=== PATIENT | female | born 1950 | race Caucasian/White ===

== ENCOUNTER 2017-08-03 12:39 | Emergency (ER) | payer MEDICARE ==
[~2017-08-03] VITALS: Ht 170.2 cm; Wt 94.8 kg
[~2017-08-03 12:39] MED LIST: CALCIUM + VITA1 EACH PO; CRESTOR10 MG PO; ENALAPRIL MALEA20 MG PO; TRAZODONE HCL100 MG PO; WELLBUTRIN XL150 MG PO
[2017-08-03] MEDS ORDERED: SODIUM CHLORIDE 0.9% 1000ML 1,000 ML IV STA (13:27)
[2017-08-03] MEDS ORDERED: METHYLPREDNISOLONE SOD SUCC 125 MG/2ML VIAL IV STA (13:27)
[2017-08-03] MEDS ORDERED: ALBUTEROL/IPRATROPIUM 3 ML NEB NEB ONE (13:30)
[2017-08-03 14:16] LABS: ALANINE AMINOTRANSFERASE 52 IU/L (0-55); ALBUMIN 3.6 g/dL (3.5-5.0); ALBUMIN/GLOBULIN RATIO 0.8 (0.8-2.0); ALKALINE PHOSPHATASE 96 IU/L (40-150); ANION GAP 13.3 mmol/L (8-16); BLOOD UREA NITROGEN 18 mg/dL (7-26); BUN/CREATININE RATIO 19 (6-25); CALCIUM 10.1 mg/dL (8.4-10.2); CARBON DIOXIDE 27 mmol/L (22-29); CHLORIDE 95 mmol/L (98-107); CREATINE KINASE 305 IU/L (29-168); CREATININE, SERUM 0.97 mg/dL (0.57-1.11); EST GLOMERULAR FILTRATION RATE 57 ML/MIN (60-); GLUCOSE 101 mg/dL (74-118); POTASSIUM 3.3 mmol/L (3.5-5.1); SODIUM 132 mmol/L (136-145)
[2017-08-03 14:19] LABS: BASOPHILS # (AUTO) 0.1 (0.0-0.1); BASOPHILS % 0.7 % (0.0-1.0); EOSINOPHILS # (AUTO) 0.2 (0.0-0.4); EOSINOPHILS % 1.5 % (0.0-6.0); HEMATOCRIT 39.5 % (34.2-44.1); HEMOGLOBIN 13.2 g/dL (12.0-16.0); LYMPHOCYTES # (AUTO) 2.5 (1.0-3.2); LYMPHOCYTES % 21.5 % (18.0-39.1); MEAN CORPUSCULAR HGB CONC 33.4 g/dL (31-35); MEAN CORPUSCULAR VOLUME 89.8 fL (81-99); MONOCYTES # (AUTO) 0.8 (0.2-0.8); MONOCYTES % 6.8 % (4.4-11.3); NEUTROPHILS # (AUTO) 7.9 (2.1-6.9); NEUTROPHILS % 68.1 % (38.7-80.0); PLATELET COUNT 330 x10e3/uL (140-360); RED CELL DISTRIBUTION WIDTH 12.9 % (11.7-14.4)
[2017-08-03 14:22] LABS: TROPONIN I < 0.001 ng/mL (0-0.300)
--- NOTE | 2017-08-03 14:53 | Diagnostic Imaging Report ---
EXAMINATION: CHEST 2 VIEWS INDICATION: \S\SOB, COUGH \S\[id number] \S\1355 \S.br\ COMPARISON: None FINDINGS: PA and lateral views TUBES and LINES: None. LUNGS: Lungs are well inflated. Airspace opacity in the posterolateral left lower lobe. Lungs are otherwise clear. PLEURA: No pleural effusion or pneumothorax. HEART AND MEDIASTINUM: The cardiomediastinal silhouette is unremarkable. BONES AND SOFT TISSUES: No acute osseous lesion. Soft tissues are unremarkable. UPPER ABDOMEN: No free air under the diaphragm. IMPRESSION: Left lower lobe opacity concerning for pneumonia in the appropriate clinical context. Recommend follow up chest radiograph to document resolution. Signed by: DR. Marcelino Cárdenas MD on 08/03/2017 2:50 PM
[2017-08-03 15:55] VITALS: BP 133/68
== END 2017-08-03 17:08 | disposition home or self-care (01) ==
LOC: ER 12:39
DX: R06.09 Other forms of dyspnea (principal); R05 Cough; J18.1 Lobar pneumonia, unspecified organism; I10 Essential (primary) hypertension
CPT/HCPCS: 36415; 71020; 80053; 82550; 82553; 84484; 85025; 85379; 87400; 93005; 94640; 99284; J2930; J7030

== ENCOUNTER 2018-02-17 17:20 | Emergency (ER) | payer BC, MEDICARE, OTHER ==
[~2018-02-17] VITALS: Ht 170.2 cm; Wt 94.8 kg
[2018-02-17] MEDS ORDERED: NAPROXEN250 MG PO (18:10)
[2018-02-17] MEDS ORDERED: LISINOPRIL-HCT1 EAC2 (18:10)
[2018-02-17] MEDS ORDERED: LEXAPRO10 MG PO (18:10)
[2018-02-17] MEDS ORDERED: KETOROLAC TROMETHAMINE 60 MG/2 ML VIAL IM ONE (18:30)
== END 2018-02-17 19:46 | disposition home or self-care (01) ==
LOC: FSED 17:20
DX: M25.562 Pain in left knee (principal); R26.2 Difficulty in walking, not elsewhere classified; I10 Essential (primary) hypertension; E78.00 Pure hypercholesterolemia, unspecified; F32.9 Major depressive disorder, single episode, unspecified
CPT/HCPCS: 73562; 99283; J1885

== ENCOUNTER → 2018-02-23 | Outpatient (CLI) | payer MEDICARE ==
[~2018-02-23] MED LIST changes: +LEXAPRO10 MG PO; +LISINOPRIL-HCT1 EAC2; +NAPROXEN250 MG PO
--- NOTE | 2018-02-23 12:13 | Diagnostic Imaging Report ---
TECHNIQUE: Magnetic resonance imaging of the LEFT KNEE was performed WITHOUT injected contrast. HISTORY: Left knee pain COMPARISON: None available. FINDINGS: LIGAMENTS AND TENDONS: ACL: Intact PCL: Intact Collateral ligaments: Intact Iliotibial band: Unremarkable Popliteal tendon: Intact Extensor mechanism: Intact JOINT: Menisci: Medial: Degenerative signal with possible horizontal tear posterior horn and partial tearing of the posterior horn root junction Lateral: Intact without tear. Articular Cartilage: Medial Compartment: Partial thickness cartilage loss Lateral Compartment: Partial thickness cartilage loss Patellofemoral Compartment: Partial thickness cartilage loss Joint Fluid: Small joint effusion. Ruptured Salazar's cyst. BONE: No focal or infiltrative bone marrow replacing abnormality. No acute fracture. SOFT TISSUES: Otherwise, unremarkable. IMPRESSION: Medial meniscus degeneration with possible horizontal tear posterior horn and partial tearing at the posterior horn root junction. Tricompartment partial-thickness cartilage loss. Small joint effusion with ruptured Salazar's cyst. Signed by: Dr. Azael Lutz M.D. on 02/23/2018 12:09 PM
== END ==
LOC: MRI 10:27
PROVIDERS: ATTEND Specialist
DX: S83.242A Other tear of medial meniscus, current injury, left knee, initial encounter (principal)

== ENCOUNTER 2018-03-07 11:09 | Outpatient (RCR) | payer MEDICARE | END 2018-03-17 | LOC: PT 11:09 | PROVIDERS: ATTEND Specialist | DX: M25.562 Pain in left knee (principal); M17.12 Unilateral primary osteoarthritis, left knee | CPT/HCPCS: 97110; 97162; G8978; G8979 ==

== ENCOUNTER 2018-09-02 11:29 | Emergency (ER) | payer MEDICARE ==
[~2018-09-02] VITALS: Ht 170.2 cm; Wt 94.3 kg
--- OUTSIDE RECORDS SUMMARY | 2018-09-02 11:32 | XMS REPORT | Summary of Care ---
Author Organization Unknown Address Unknown Phone Unavailable Encounter HQ Encntr_aliiglesia([facility]) [id number] Date(s): 11/12/14 - 11/12/14 [facility] Outpatient Imaging - [place] [address] [place] [address] [phone] Discharge Disposition: Home Physician Attending: Michelle Donovan MD Vital Signs No data available for this section Problem List No data available for this section Allergies, Adverse Reactions, Alerts No data available for this section Medications No data available for this section Results No data available for this section Immunizations No data available for this section Procedures No data available for this section Social History No data available for this section Assessment and Plan No data available for this section
--- OUTSIDE RECORDS SUMMARY | 2018-09-02 11:32 | XMS REPORT | Summary of Care ---
Author Author [facility] Organization [facility] Address Unknown Phone Unavailable Encounter HQ Tania([place]) [id number] Date(s): 11/30/17 - 11/30/17 [facility] [address] [place] [address]- [phone] Discharge Disposition: Home or Self Care Attending Physician: Krystal Marcelo DO Referring Physician: Krystal Marcelo DO Vital Signs No data available for this section Problem List Condition Effective Dates Status Health Status Informant GERD Active (gastroesophageal reflux disease)(Confirmed) HTN Active (hypertension)(Confi rmed) Seasonal Active allergies(Confirmed) Sinus Active congestion(Confirmed ) Sleep Active apnea(Confirmed) Squamous cell Resolved carcinoma of face(Confirmed) TIA(Confirmed)1 Resolved 82358 Allergies, Adverse Reactions, Alerts Substance Reaction Severity Status NKDA Active Medications No data available for this section Results No data available for this section Immunizations No data available for this section Procedures Procedure Date Related Diagnosis Body Site Status Cholecystectomy1 Completed Surgical biopsy2 Completed 26310 2squamous cell removed left side face 2009 Social History Social History Type Response Smoking Status Never smoker; Exposure to Tobacco Smoke None; Cigarette Smoking Last 365 Days No; Reg Smoking Cessation Counseling No entered on: 01/10/15 Assessment and Plan No data available for this section
--- OUTSIDE RECORDS SUMMARY | 2018-09-02 11:32 | XMS REPORT | Summary of Care ---
Author Organization Unknown Address Unknown Phone Unavailable Encounter HQ Deniser_brain([facility]) [id number] Date(s): 07/24/14 - 07/24/14 [facility] Outpatient Imaging - [address] [address] [place] Discharge Disposition: Home Physician Attending: Mariana Bui MD Reason for Visit 786.2 - COUGH Problem List No data available for this section Allergies, Adverse Reactions, Alerts No data available for this section Medications No data available for this section Medications Administered During Your Visit No data available for this section Immunizations No data available for this section
--- OUTSIDE RECORDS SUMMARY | 2018-09-02 11:32 | XMS REPORT | Summary of Care ---
Author Author [facility] Organization [facility] Address Unknown Phone Unavailable Encounter OZZY Marin([place]) [id number] Date(s): 03/31/17 - 03/31/17 [facility] [address] [place] [address]- [phone] Discharge Disposition: Home or Self Care Attending Physician: Krystal Marcelo DO Referring Physician: Krystal Marcelo DO Vital Signs No data available for this section Problem List Condition Effective Dates Status Health Status Informant Depression(Confirmed Active ) GERD Active (gastroesophageal reflux disease)(Confirmed) HTN Active (hypertension)(Confi rmed) Seasonal Active allergies(Confirmed) Sinus Active congestion(Confirmed ) Sleep Active apnea(Confirmed) Squamous cell Resolved carcinoma of face(Confirmed) TIA(Confirmed)1 Resolved 08616 Allergies, Adverse Reactions, Alerts Substance Reaction Severity Status NKDA Active Medications Omnipaque 300 100 mL, Route: IV, Drug Form: SOLN, ONCE, Start date: 03/31/17 8:33:00 CDT, Stop date: 03/31/17 8:33:00 CDT Notes: (Same as:Omnipaque 300).WASTE: F/P - Black; E - Municipal Trash Bin Start Date: 03/31/17 Stop Date: 03/31/17 Status: Completed Results CHEM PANEL Most recent to 1 oldest [Reference Range]: eGFR 66 mL/min/1.73m2 1 *NA* (03/31/17 8:00 AM) POC Creatinine 0.9 mg/dL [0.5-1.4 mg/dL] (03/31/17 8:00 AM) 1Result Comment: The eGFR is calculated using the CKD-EPI formula. In most young, healthy individuals the eGFR will be >90 mL/min/1.73m2. The eGFR declines with age. An eGFR of 60-89 may be normal in some populations, particularly the elderly, for whom the CKD-EPI formula has not been extensively validated. Use of the eGFR is not recommended in the following populations: Individuals with unstable creatinine concentrations, including patients and those with serious co-morbid conditions. Patients with extremes in muscle mass or diet. The data above are obtained from the National Kidney Disease Education Program ( NKDEP) which additionally recommends that when the eGFR is used in patients with extremes of body mass index for purposes of drug dosing, the eGFR should be mul tiplied by the estimated BMI. Immunizations No data available for this section Procedures Procedure Date Related Diagnosis Body Site Cholecystectomy1 Surgical biopsy2 74340 2squamous cell removed left side face 2009 Social History Social History Type Response Smoking Status Never smoker; Exposure to Tobacco Smoke None; Cigarette Smoking Last 365 Days No; Reg Smoking Cessation Counseling No Assessment and Plan No data available for this section
--- OUTSIDE RECORDS SUMMARY | 2018-09-02 11:32 | XMS REPORT | Summary of Care ---
Author Author [facility] Organization [facility] Address Unknown Phone Unavailable Encounter HQ Greer_brain([place]) [id number] Date(s): 10/10/15 - 10/10/15 [facility] [address] [place] [address]- Discharge Disposition: Home Attending Physician: Merrick Parker MD Vital Signs No data available for this section Problem List Condition Effective Dates Status Health Status Informant Depression(Confirmed Active ) GERD Active (gastroesophageal reflux disease)(Confirmed) HTN Active (hypertension)(Confi rmed) Seasonal Active allergies(Confirmed) Sinus Active congestion(Confirmed ) Sleep Active apnea(Confirmed) Squamous cell Resolved carcinoma of face(Confirmed) TIA(Confirmed)1 Resolved 51764 Allergies, Adverse Reactions, Alerts Substance Reaction Severity Status NKDA Active Medications No data available for this section Results No data available for this section Immunizations No data available for this section Procedures Procedure Date Related Diagnosis Body Site Cholecystectomy1 Surgical biopsy2 64757 2squamous cell removed left side face 2009 Social History Social History Type Response Smoking Status Never smoker; Exposure to Tobacco Smoke None; Cigarette Smoking Last 365 Days No; Reg Smoking Cessation Counseling No Assessment and Plan No data available for this section
--- OUTSIDE RECORDS SUMMARY | 2018-09-02 11:32 | XMS REPORT | Continuity of Care Document ---
Author Author [facility] Interface Address Unknown Phone Unavailable Problems Problem Status Onset Date Classification Date Reported Comments Source DX: M79.89=OTHER SPECIFIED SOFT TISSUE D Active 05/10/2018 [place] M54.5 Active 11/22/2017 [facility] LUMBAR DEGENERATIVE DD Active 09/08/2017 [facility] [place] LOWER ABD PAIN Active 03/30/2017 [facility] R05 Active 09/10/2015 [facility] UNK Active 12/18/2014 [facility] 473.9 473.0 473.1 473.2 473.3/84029 3127 Active 12/18/2014 [facility] 786.2 Active 12/24/2011 [facility] GERD Active 07/18/2011 [facility] Depression Active Problem 04/03/2017 [facility] GERD (<span ID="[id number]">Confirmed</span>) Active Problem 12/03/2017 [facility] HTN (<span ID="[id number]">Confirmed</span>) Active Problem 12/03/2017 [facility] Seasonal allergies Active Problem 12/03/2017 [facility] Sinus congestion Active Problem 12/03/2017 [facility] Sleep apnea Active Problem 12/03/2017 [facility] 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 WASTE: F/P - Black; E - [facility] Inactive 03/31/2017 [facility] Allergies, Adverse Reactions, Alerts Substance Category Reaction Severity Reaction type Status Date Reported Comments Source Immunizations Immunization Date Given Site Status Last Updated Comments Source Results Order Name Results Value Reference Range Date Interpretation Comments Source Ext Lower Venous Doppler Unilat US Ext Lower Venous Doppler Unilat US Patient Name: GABY JARAMILLO : 1950; Age: 67 years Female MR: [id number] Study: Ext Lower Venous Doppler Unilat US 05/10/2018 12:28 PM CDT CLINICAL INDICATION: Left leg pain and swelling. COMPARISON: None TECHNIQUE: Sonographic evaluation of the left lower extremity veins was performed using high resolution B-mode imaging, along with pulse and color Doppler imaging. FINDINGS: Left lower extremity: The common femoral vein, femoral vein, popliteal vein and visualized posterior tibial/calf veins are patent and compressible. The saphenofemoral junction and visualized greater saphenous vein are patent and compressible. IMPRESSION: No evidence of deep venous thrombosis within the left lower extremity. SL: [id number] 05/10/2018 - - Read by: Alli Black MD Dictated Date/time: 05/10/18 14:16 Electronically Signed by: Alli Black MD 05/10/18 14:16 FINAL REPORT [facility] Spine lumbar wo contrast MRI Spine lumbar wo contrast MRI Patient Name: GABY JARAMILLO : 1950; Age: 67 years y/o Female MR: [id number] Study: Spine lumbar wo contrast MRI 11/30/2017 1:31 PM CDT Ordering Physician: Krystal Marcelo DO Comparison: None Clinical Indication: - M54.5 Low back pain; Multiple sagittal T1 , T2 and fat-suppressed T2 weighted images as well as axial T1, T2 and oblique axial T2-weighted images were obtained. Conus and cauda equina are unremarkable. Disc desiccation without disc space narrowing is noted at L1-L2, L2-L3 and L3-L4 consistent with degenerative disc disease. Lumbar vertebral body heights and interspaces are otherwise well- maintained. Marrow signal at the lumbar vertebrae is normal. Findings will be described per level as follows: At T12-L1,there is no acute disc herniation, central spinal stenosis or neural foraminal stenosis. Posterior ligamentous thickening. Degenerative arthropathy of the apophyseal joints at this level is noted. At L1-L2,there is mild broad-based disc bulge present associated with ligamentous thickening and degenerative arthropathy of the apophyseal joints at this level resulting in mild central spinal stenosis. There is no acute disc herniation or neural foraminal stenosis. At L2-L3,there is mild broad-based disc bulge present associated with ligamentous thickening and degenerative arthropathy of the apophyseal joints at this level resulting in moderate central spinal stenosis. There is no acute disc herniation or neural foraminal stenosis. At L3-L4,there is mild broad-based disc bulge present associated with ligamentous thickening and degenerative arthropathy of the apophyseal joints at this level resulting in moderate to moderately severe central spinal stenosis. A synovial cyst undercutting the posterior ligamentous thickening on the right is noted measuring 5 x 10 mm. No acute disc herniation or neural foraminal stenosis. At L4-L5,there is mild to moderate broad-based disc bulge present associated with ligamentous thickening and degenerative arthropathy of the apophyseal joints at this level resulting in moderately severe central spinal stenosis. No neural foraminal stenosis. No acute disc herniation. At L5-S1, focal extraforaminal lateralization of disc bulge to the left is noted at this level. There is no acute disc herniation, central spinal stenosis or neural foraminal stenosis. Degenerative arthropathy of the apophyseal joints at this level is noted. IMPRESSION: 1. Lumbar spondylosis is noted as detailed per level above. 2. Degenerative disc disease at L1-L2, L2-L3 and L3-L4. 3. Degenerative arthrosis at the lumbar apophyseal joints at all levels. 4. At L3-L4, there is moderate to moderately severe central spinal stenosis. 5. At L4-L5, there is moderately severe central spinal stenosis. 6. At L3-L4, a synovial cyst undercutting the posterior ligamentous thickening on the right is noted measuring 5 x 10 mm. SL: [id number] 11/30/2017 - - Read by: Danny Boyd MD Dictated Date/time: 11/30/17 14:07 Electronically Signed by: Danny Boyd MD 11/30/17 14:20 FINAL REPORT [facility] CHEM PANEL eGFR 66 mL/min/1.73m2 03/31/2017 Result Comment: The eGFR is calculated using the [...] from the National Kidney Disease Education Program (NKDEP) which additionally recommends that when the eGFR is used in patients with extremes of body mass index for purposes of drug dosing, the eGFR should be multiplied by the estimated BMI. [facility] CHEM PANEL POC Creatinine 0.9 mg/dL 0.5 - 1.4 03/31/2017 [facility] Abdomen/Pelvis w/wo IV contrast CT Abdomen/Pelvis w/wo IV contrast CT Patient Name: GABY JARAMILLO : 1950; Age: 66 years Female MR: [id number] Study: Abdomen/Pelvis w/wo IV contrast CT 03/31/2017 7:57 AM CDT Clinical Indication: [address] DLP: 2505 mGy-cm - Lower abdominal pain. COMPARISON: 02/19/2010. Ultrasound 01/01/2010. TECHNIQUE: Helical imaging was performed diaphragm through the symphysis with multiplanar reformations obtained before and after the administration of IV contrast. CT OF THE ABDOMEN AND PELVIS WITHOUT AND WITH IV CONTRAST: LOWER CHEST: The lung bases are clear. ABDOMEN: No free air. LIVER: Normal. BILIARY TREE: Normal. GALLBLADDER: Surgically absent. PANCREAS: Normal. SPLEEN: Borderline hepatomegaly. ADRENALS: Normal. KIDNEYS: No stones. No hydronephrosis. PELVIS: No ureterolithiasis. The bladder is normal. No large pelvic mass. BOWEL: No small bowel obstruction. Sigmoid diverticulosis. Inflammation surrounding the distal descending colon, proximal sigmoid colonic region. Normal appendix. PERITONEUM: No free intraperitoneal fluid. RETROPERITONEUM: The aorta is normal. There is no pathologic lymphadenopathy. MUSCULOSKELETAL: Thoracic and lumbar spondylosis. IMPRESSION: 1. Changes in the descending colon proximal sigmoid colon suspicious for diverticulitis/colitis. Follow-up to document resolution after clearance is recommended to help exclude a more aggressive process. 2. Postcholecystectomy. 3. Borderline splenomegaly. 4. Normal appendix. These findings are communicated to Sandy in the office of Krystal Marcelo DO at 03/31/2017 10:12 AM CDT. SL: [id number] 03/31/2017 - - Read by: Yury Ruiz MD Dictated Date/time: 03/31/17 10:01 Electronically Signed by: Yury Ruiz MD 03/31/17 10:13 FINAL REPORT [facility] Chest 2 views DX Chest 2 views DX EXAM: Chest 2 views DX DATE: 10/10/2015 4:35 PM CDT INDICATION: R05 Cough sinus congestion. COMPARISON: 07/24/2014 IMPRESSION: Stable mildly enlarged cardiac silhouette. No definite failure. No focal consolidation, significant pleural effusion or pneumothorax. Surgical clips are present within the right upper quadrant. SL: [id number] 10/10/2015 - - Read by: Gera Minor MD Dictated Date/time: 10/10/15 17:14 Electronically Signed by: Gera Minor MD 10/10/15 17:16 FINAL REPORT [facility] Spine cervical wo contrast MRI Spine cervical wo contrast MRI MRI CERVICAL SPINE WITHOUT CONTRAST TECHNIQUE: Multiplanar multisequence imaging of the cervical spine was performed without administration of intravenous gadolinium. COMPARISON: No prior exam. FINDINGS: Multilevel disc desiccation is seen. C2-C3: Mild bilateral facet osteoarthritis without central canal or foraminal stenosis. C3-C4: Approximately 2.3 mm dorsal disc osteophyte complex with minimal central canal stenosis. No mass effect on the cervical cord. Mild bilateral foraminal stenosis due to small foraminal osteophytes. C4-C5: Minimal grade 1 anterolisthesis is present. Mild central canal stenosis without mass effect on the cervical cord. Moderate right facet osteoarthritis with moderate right foraminal stenosis. C5-C6: 2.3 mm dorsal disc osteophyte complex with mild central canal stenosis and mild cord indentation. Bilateral foraminal osteophytes are seen, prominent on the right with severe right foraminal stenosis and mild to moderate left foraminal stenosis. C6-C7: 3 mm disc bulge is present with mild central canal stenosis. No significant mass effect on the cervical cord. Mild bilateral facet osteoarthritis is present with severe right foraminal stenosis and moderate left foraminal stenosis due to foraminal osteophytes. C7-T1: Unremarkable. The cervical cord signal is unremarkable without MRI evidence of myelopathy. IMPRESSION: 1. Multilevel disc degenerative disease and spondylosis. 2. Multilevel mild central canal stenosis and mild cord indentation. No MRI evidence of spinal cord myelopathy. 3. Multilevel foraminal stenosis, particularly on the right at the C5-C6 and C6- C7 levels. 11/12/2014 - - Read by: Kory Mcintosh MD Dictated Date/time: 11/12/14 14:41 Electronically Signed by: Kory Mcintosh MD 11/12/14 16:43 FINAL REPORT [facility] Neck wo contrast MRA Neck wo contrast MRA EXAM: MRI OF THE BRAIN WITHOUT CONTRAST EXAM: MRA OF THE [place] OF [place] EXAM: MRA OF THE CERVICAL VASCULATURE WITHOUT CONTRAST DATE: Nov 12, 2014 01:41:22 PM INDICATION: 64-year-old female with left-sided numbness in arms and legs COMPARISON: Unavailable TECHNIQUE: BRAIN MRI: The following sequences were obtained: axial and sagittal T1-weighted images; axial T2, FLAIR and T2 gradient recalled echo sequences; and axial diffusion weighted imaging with ADC mapping. MRA OF THE CERVICAL VASCULATURE 2D time of flight MR angiography of the cervical vasculature and 3-D tosv-od-oztpyd MR angiography of the carotid bifurcations is performed. Maximum intensity projection reformatted images are presented in multiple three-dimensional rotational projections. [place] MRA: Three-dimensional time of flight MR angiography of intracranial vessels is performed, and maximum intensity projection reformatted images are presented in multiple three-dimensional rotational projections. FINDINGS: BRAIN MRI: There is no hemorrhage, mass lesion, extra axial collection, cerebral edema, or mass effect. There is mild parietal cortical volume loss. There are a few, mostly subcortical white matter signal abnormalities without mass effect. No abnormality is present on the diffusion weighted images. No edema, hemorrhage, or extra axial collections are identified. There is no mass or mass-effect. The ventricles and sulci are normal in size and shape. The basal cisterns are patent. Cerebral tonsillar above foramen magnum. The sella is normal. The skull and orbits have normal appearance. There is right frontal, anterior ethmoid, and maxillary sinus opacification including small air-fluid levels. MRA OF THE NECK: The cervical common and internal carotid arteries have a normal course caliber and contour. No hemodynamically significant stenosis is identified at the carotid bifurcations. Vertebrobasilar circulation: The vertebral arteries have a normal course caliber and contour in the neck. The right vertebral artery is dominant. KAW [place] MRA: Axial 3-D kdai-oq-chgeag MR angiography of the intracranial vasculature does not demonstrate any aneurysms, stenoses, or branch occlusions. 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 IMPRESSION: 1. No evidence of previous cortical ischemia or significant chronic subcortical ischemia. 2. Mild, subcortical white matter changes most in keeping with migraine. Chronic small vessel ischemia is thought less likely given size and distribution. 3. No cervical carotid or vertebral stenosis. 4. No intracranial stenosis or aneurysm 5. 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 11/12/2014 - - Read by: Sánchez Taylor MD Dictated Date/time: 11/12/14 14:37 Electronically Signed by: Sánchez Taylor MD 11/12/14 14:43 FINAL REPORT [facility] [place] Brain wo contrast MRI Brain wo contrast MRI EXAM: MRI OF THE BRAIN WITHOUT CONTRAST EXAM: MRA OF THE KAW OF COELLO EXAM: MRA OF THE CERVICAL VASCULATURE WITHOUT CONTRAST DATE: Nov 12, 2014 01:41:22 PM INDICATION: 64-year-old female with left-sided numbness in arms and legs COMPARISON: Unavailable TECHNIQUE: BRAIN MRI: The following sequences were obtained: axial and sagittal T1-weighted images; axial T2, FLAIR and T2 gradient recalled echo sequences; and axial diffusion weighted imaging with ADC mapping. MRA OF THE CERVICAL VASCULATURE 2D time of flight MR angiography of the cervical vasculature and 3-D gnnp-ns-xcbmyk MR angiography of the carotid bifurcations is performed. Maximum intensity projection reformatted images are presented in multiple three-dimensional rotational projections. [place] MRA: Three-dimensional time of flight MR angiography of intracranial vessels is performed, and maximum intensity projection reformatted images are presented in multiple three-dimensional rotational projections. FINDINGS: BRAIN MRI: There is no hemorrhage, mass lesion, extra axial collection, cerebral edema, or mass effect. There is mild parietal cortical volume loss. There are a few, mostly subcortical white matter signal abnormalities without mass effect. No abnormality is present on the diffusion weighted images. No edema, hemorrhage, or extra axial collections are identified. There is no mass or mass-effect. The ventricles and sulci are normal in size and shape. The basal cisterns are patent. Cerebral tonsillar above foramen magnum. The sella is normal. The skull and orbits have normal appearance. There is right frontal, anterior ethmoid, and maxillary sinus opacification including small air-fluid levels. MRA OF THE NECK: The cervical common and internal carotid arteries have a normal course caliber and contour. No hemodynamically significant stenosis is identified at the carotid bifurcations. Vertebrobasilar circulation: The vertebral arteries have a normal course caliber and contour in the neck. The right vertebral artery is dominant. KAW [place] MRA: Axial 3-D imvh-mn-kxtesu MR angiography of the intracranial vasculature does not demonstrate any aneurysms, stenoses, or branch occlusions. 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 IMPRESSION: 1. No evidence of previous cortical ischemia or significant chronic subcortical ischemia. 2. Mild, subcortical white matter changes most in keeping with migraine. Chronic small vessel ischemia is thought less likely given size and distribution. 3. No cervical carotid or vertebral stenosis. 4. No intracranial stenosis or aneurysm 5. 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 11/12/2014 - - Read by: Sánchez Taylor MD Dictated Date/time: 11/12/14 14:37 Electronically Signed by: Sánchez Taylor MD 11/12/14 14:43 FINAL REPORT [facility] Brain wo contrast MRA Brain wo contrast MRA EXAM: MRI OF THE BRAIN WITHOUT CONTRAST EXAM: MRA OF THE KAW OF [place]LL[place] EXAM: MRA OF THE CERVICAL VASCULATURE WITHOUT CONTRAST DATE: Nov 12, 2014 01:41:22 PM INDICATION: 64-year-old female with left-sided numbness in arms and legs COMPARISON: Unavailable TECHNIQUE: BRAIN MRI: The following sequences were obtained: axial and sagittal T1-weighted images; axial T2, FLAIR and T2 gradient recalled echo sequences; and axial diffusion weighted imaging with ADC mapping. MRA OF THE CERVICAL VASCULATURE 2D time of flight MR angiography of the cervical vasculature and 3-D kxmy-fo-lvnxsk MR angiography of the carotid bifurcations is performed. Maximum intensity projection reformatted images are presented in multiple three-dimensional rotational projections. [place] MRA: Three-dimensional time of flight MR angiography of intracranial vessels is performed, and maximum intensity projection reformatted images are presented in multiple three-dimensional rotational projections. FINDINGS: BRAIN MRI: There is no hemorrhage, mass lesion, extra axial collection, cerebral edema, or mass effect. There is mild parietal cortical volume loss. There are a few, mostly subcortical white matter signal abnormalities without mass effect. No abnormality is present on the diffusion weighted images. No edema, hemorrhage, or extra axial collections are identified. There is no mass or mass-effect. The ventricles and sulci are normal in size and shape. The basal cisterns are patent. Cerebral tonsillar above foramen magnum. The sella is normal. The skull and orbits have normal appearance. There is right frontal, anterior ethmoid, and maxillary sinus opacification including small air-fluid levels. MRA OF THE NECK: The cervical common and internal carotid arteries have a normal course caliber and contour. No hemodynamically significant stenosis is identified at the carotid bifurcations. Vertebrobasilar circulation: The vertebral arteries have a normal course caliber and contour in the neck. The right vertebral artery is dominant. [place] MRA: Axial 3-D ovcn-ok-qtufln MR angiography of the intracranial vasculature does not demonstrate any aneurysms, stenoses, or branch occlusions. 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 IMPRESSION: 1. No evidence of previous cortical ischemia or significant chronic subcortical ischemia. 2. Mild, subcortical white matter changes most in keeping with migraine. Chronic small vessel ischemia is thought less likely given size and distribution. 3. No cervical carotid or vertebral stenosis. 4. No intracranial stenosis or aneurysm 5. 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 11/12/2014 - - Read by: Sánchez Taylor MD Dictated Date/time: 11/12/14 14:37 Electronically Signed by: Sánchez Taylor MD 11/12/14 14:43 FINAL REPORT [facility] Chest 2 views Chest 2 views CHEST RADIOGRAPHY CLINICAL HISTORY: 786.2 Cough. COMPARISON IMAGIN12/24/2011 FINDINGS: Two views of the chest were acquired and submitted for evaluation. No pleural fluid is identified. The contour of the cardiac silhouette is within normal limits. There is no significant pulmonary consolidation or nodularity. Degenerative changes of the spine noted. IMPRESSION: No significant abnormality. 07/24/2014 - - Read by: Sofia Rich DO Dictated Date/time: 07/25/14 08:02 Electronically Signed by: Sofia Rich DO 07/25/14 08:03 FINAL REPORT [facility] Sinus paranasal series DX Sinus paranasal series DX EXAM: Three view(s) of the paranasal sinuses. INDICATION: Cough. COMPARISON: Paranasal sinus x-rays of August 02, 2011. IMPRESSION: 1. No asymmetric opacification, fluid level, or mucosal thickening of the visualized paranasal sinuses. 07/24/2014 - - Read by: Reggie Jeffries MD Dictated Date/time: 07/25/14 08:39 Electronically Signed by: Reggie Jeffries MD 07/25/14 08:41 FINAL REPORT [facility] Ribs unilateral Ribs unilateral RIGHT RIB SERIES CLINICAL HISTORY: Rib pain. COMPARISON IMAGIN12/24/2011 radiography. FINDINGS: Two views of the right-sided ribs were submitted for review. No fracture is seen. Right lung is clear. The cardiac silhouette is grossly unremarkable. No obvious pleural fluid is identified. IMPRESSION: No significant abnormality. 03/27/2013 - - Read by: Kam Toledo Dictated Date/time: 03/27/13 18:58 Electronically Signed by: Kam Toledo MD 03/27/13 19:00 FINAL REPORT [facility] Vital Signs Vital Sign Value Date Comments Source Encounters Location Location Details Encounter Type Encounter Number Reason For Visit Attending Provider ADM Date DC Date Status Source [facility] Outpatient [id number] 786.2 RICKIE BANDA 12/24/2011 Active [facility] [place] [facility] [id number] Mariana Bui 07/24/2014 07/25/2014 [facility] [place] [facility] [place] [facility] [id number] Michelle Donovan 11/12/2014 11/13/2014 [place] [place] [facility] Out[facility] [id number] Merrick Parker 10/10/2015 10/11/2015 [facility] Outpatient [id number] Krystal Marcelo 03/31/2017 04/01/2017 [facility] Outpatient [id number] Krystal Marcelo 11/30/2017 12/01/2017 [facility] Outpatient [id number] GERD VÍCTOR TERRAZAS Active [facility] Procedures Procedure Code Date Perfomer Comments Source Cholecystectomy<sup>1</sup> [id number] 2004 [facility] Surgical biopsy<sup>2</sup> [id number] squamous cell removed left side face 2009 [facility]
[2018-09-02] MEDS ORDERED: AZITHROMYCIN250 MG PO (12:07)
[2018-09-02] MEDS ORDERED: VENTOLIN HFA18 GM INH (12:07)
[2018-09-02] MEDS ORDERED: TESSALON PERLE100 MG PO (12:07)
--- NOTE | 2018-09-02 12:28 | Diagnostic Imaging Report ---
EXAM: PA and lateral views of the chest. COMPARISON: Chest radiograph 08/03/2017 CLINICAL HISTORY: ^[id number] ^1100 FINDINGS: Lines/tubes: None. Lungs: Bilateral hilar and lower lobes. Bronchial wall thickening, more prominent compared to prior exam. No lobar consolidations. No pulmonary edema. Pleura: There is no pleural effusion or pneumothorax. Heart and mediastinum: The cardiomediastinal silhouette is normal. Bones and soft tissues: Mild multilevel degenerative changes of the thoracic spine. Right upper quadrant cholecystectomy clips. IMPRESSION: Radiographic findings suggestive of bronchitis. Signed by: Dr. Kate Kwon M.D. on 09/02/2018 12:25 PM
[2018-09-02 12:46] VITALS: BP 163/83
== END 2018-09-02 12:48 | disposition home or self-care (01) ==
LOC: FSED 11:29
DX: R50.9 Fever, unspecified (principal); R05 Cough; J20.9 Acute bronchitis, unspecified; I10 Essential (primary) hypertension
CPT/HCPCS: 71046; 87400; 99282

== ENCOUNTER 2018-10-01 10:02 | Emergency (ER) | payer MEDICARE ==
[~2018-10-01] VITALS: Ht 170.2 cm; Wt 92.1 kg
[~2018-10-01 10:02] MED LIST changes: +AZITHROMYCIN250 MG PO; +TESSALON PERLE100 MG PO; +VENTOLIN HFA18 GM INH
--- OUTSIDE RECORDS SUMMARY | 2018-10-01 10:06 | XMS REPORT ---
Author Author [facility] Address Unknown Phone Unavailable Care Team Providers Care Porter Head Name Role Phone Valencia BOYD Unavailable Unavailable KIMBERLEY BRANHAM Unavailable Unavailable Yahir TYLER Unavailable Unavailable Problems This patient has no known problems. Allergies, Adverse Reactions, Alerts This patient has no known allergies or adverse reactions. Medications This patient has no known medications. Results Test Description Test Time Test Comments Text Results Atomic Results Result Comments [facility] 2018-09-02 12:23:00 [place] [address] Patient Name: GABY JARAMILLO MR #: [id number] : 1950 Age/Sex: 68/F Req #: [id number] Adm Physician: Ordered by: CLARISSA BOYD MD Report #: [id number] Location: [facility] Room/Bed: Procedure: [id number] HOPD/CXR 2 VIEW - [facility] Exam Date: 09/02/18 Exam Time: 1100 REPORT STATUS: Signed EXAM: PA and lateral views of the chest. COMPAR SHAUN: Chest radiograph 08/03/2017 CLINICAL HISTORY: [id number] FINDINGS: Lines/tubes: None. Lungs: Bilateral hilar and lower lobes. Bronchial wall thickening, more prominent compared to prior exam. No lobar consolidations. No pulmonary edema. Pleura: There is no pleural effusion or pneumothorax. Heart and mediastinum: The cardiomediastinal silhouette is normal. Bones and soft tissues: Mild multilevel degenerative changes of the thoracic spine. Right upper quadrant cholecystectomy clips. IMPRESSION: Radiographic findings suggestive of bronchitis. Signed by: Dr. Mamie Abbott M.D. on 09/02/2018 12:25 PM Dictated By: MAMIE ABBOTT MD Transcribed By: BRENDA on 09/02/185 COPY TO: CLARISSA BOYD MD MRI KNEE LEFT WO 2018-02-23 12:04:00 [place] [address] Patient Name: GABY JARAMILLO MR #: [id number] : 1950 Age/Sex: 67/F Req #: [id number] Adm Physician: Ordered by: KIMBERLEY BRANHAM MD Report #: [id number] Location: MRI Room/Bed: Procedure: [id number] MRI/MRI KNEE LEFT WO Exam Date: Exam Time: REPORT STATUS: Signed TECHNIQUE: Magnetic resonance imaging of the LEFT KNEE was performed WITHOUT injected contrast. HISTORY: Left knee pain COMPARISON: None available. FINDINGS: LIGAMENTS AND TENDONS: ACL: Intact PCL: Intact Collateral ligaments: Intact Iliotibial band: Unremarkable Popliteal tendon: Intact Extensor mechanism: Intact JOINT: Menisci: Medial: Degenerative signal with possible horizontal tear posterior horn and partial tearing of the posterior horn root junction Lateral: Intact without tear. Articular Cartilage: Medial Compartment: Partial thickness cartilage loss Lateral Compartment: Partial thickness cartilage loss Patellofemoral Compartment: Partial thickness cartilage loss Joint Fluid: Small joint effusion. Ruptured Salazar's cyst. BONE: No focal or infiltrative bone marrow replacing abnormality. No acute fracture. SOFT TISSUES: Otherwise, unremarkable. IMPRESSION: Medial meniscus degeneration with possible horizontal tear posterior horn and partial tearing at the posterior horn root junction. Tricompartment partial-thickness cartilage loss. Small joint effusion with ruptured Salazar's cyst. Signed by: Dr. Gail Pritchard M.D. on 02/23/2018 12:09 PM Dictated By: GAIL PRITCHARD MD 08 Transcribed By: BRENDA on 02/23/181208 COPY TO: KIMBERLEY BRANHAM MD CHEST 2 VIEWS [place] [address] Patient Name: GABY JARAMILLO MR #: [id number] : 1950 Age/Sex: 67/F Req #: [id number] Adm Physician: Ordered by: ALOK TYLER MD Report #: [id number] Location: ER Room/Bed: Procedure: [id number] DX/CHEST 2 VIEWS Exam Date: 08/03/17 Exam Time: 1355 REPORT STATUS: Signed EXAMINATION: CHEST 2 VIEWS INDICATION: COMPARISON: None FINDINGS: PA and lateral views TUBES and LINES: None. LUNGS: Lungs are well inflated. Airspace opacity in the posterolateral left lower lobe. Lungs are otherwise clear. PLEURA: No pleural effusion or pneumothorax. HEART AND MEDIASTINUM: The cardiomediastinal silhouette is unremarkable. BONES AND SOFT TISSUES: No acute osseous lesion. Soft tissues are unremarkable. UPPER ABDOMEN: No free air under the diaphragm. IMPRESSION: Left lower lobe opacity concerning for pneumonia in the appropriate clinical context. Recommend follow up chest radiograph to document resolution. Signed by: DR. Marcelino Lenz MD on 08/03/2017 2:50 PM Dictated By: MARCELINO LENZ MD 1458 Transcribed By: BRENDA on 08/03/17 1450 COPY TO: ALOK TYLER MD
--- OUTSIDE RECORDS SUMMARY | 2018-10-01 10:06 | XMS REPORT | Continuity of Care Document ---
Author Author [facility] Interface Address Unknown Phone Unavailable Problems Problem Status Onset Date Classification Date Reported Comments Source DX: M79.89=OTHER SPECIFIED SOFT TISSUE D Active 05/10/2018 [facility] M54.5 Active 11/22/2017 [facility] LUMBAR DEGENERATIVE DD Active 09/08/2017 [facility] [place] LOWER ABD PAIN Active 03/30/2017 [facility] R05 Active 09/10/2015 [facility] UNK Active 12/18/2014 [facility] 473.9 473.0 473.1 473.2 473.3/39591 3127 Active 12/18/2014 [facility] 786.2 Active 12/24/2011 [facility] GERD Active 07/18/2011 [facility] GERD (<span ID="[id number]">Confirmed</span>) Active Problem 12/03/2017 [facility] HTN (<span ID="[id number]">Confirmed</span>) Active Problem 12/03/2017 [facility] Seasonal allergies Active Problem 12/03/2017 [facility] Sinus congestion Active Problem 12/03/2017 [facility] Sleep apnea Active Problem 12/03/2017 [facility] 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 WASTE: F/P - Black; E - Municipal Trash [employer] Inactive 03/31/2017 [facility] Allergies, Adverse Reactions, Alerts Substance Category Reaction Severity Reaction type Status Date Reported Comments Source Immunizations Immunization Date Given Site Status Last Updated Comments Source Results Order Name Results Value Reference Range Date Interpretation Comments Source Ext Lower Venous Doppler Unilat US Ext Lower Venous Doppler Unilat US Patient Name: GABY JARAMILLO : 1950; Age: 67 years Female MR: [id number] Study: Ext Lower Venous Doppler Unilat US [...] thrombosis within the left lower extremity. SL: [id number] 05/10/2018 - - Read by: Alli Black MD Dictated Date/time: 05/10/18 14:16 Electronically Signed by: Alli Black MD 05/10/18 14:16 FINAL REPORT [facility] Spine lumbar wo contrast MRI Spine lumbar wo contrast MRI Patient Name: GABY JARAMILLO : 1950; Age: 67 years y/o Female MR: [id number] Study: Spine lumbar wo contrast MRI 11/30/2017 [...] noted measuring 5 x 10 mm. SL: [id number] 11/30/2017 - - Read by: Danny Boyd MD Dictated Date/time: 11/30/17 14:07 Electronically Signed by: Danny Boyd MD 11/30/17 14:20 FINAL REPORT [facility] CHEM PANEL eGFR 66 mL/min/1.73m2 03/31/2017 Result [...] should be multiplied by the estimated BMI. [facility] CHEM PANEL POC Creatinine 0.9 mg/dL 0.5 - 1.4 03/31/2017 [facility] Abdomen/Pelvis w/wo IV contrast CT Abdomen/Pelvis w/wo IV contrast CT Patient Name: GABY JARAMILLO : 1950; Age: 66 years Female MR: [id number] Study: Abdomen/Pelvis w/wo IV contrast CT 03/31/2017 [...] DO at 03/31/2017 10:12 AM CDT. SL: [id number] 03/31/2017 - - Read by: Yury Ruiz MD Dictated Date/time: 03/31/17 10:01 Electronically Signed by: Yury Ruiz MD 03/31/17 10:13 FINAL REPORT [facility] Chest 2 views DX Chest 2 views DX EXAM: Chest 2 views DX DATE: 10/10/2015 4:35 PM CDT INDICATION: R05 Cough sinus congestion. COMPARISON: 07/24/2014 IMPRESSION: Stable mildly enlarged cardiac silhouette. No definite failure. No focal consolidation, significant pleural effusion or pneumothorax. Surgical clips are present within the right upper quadrant. SL: [id number] 10/10/2015 - - Read by: Gera Minor MD Dictated Date/time: 10/10/15 17:14 Electronically Signed by: Gera Minro MD 10/10/15 17:16 FINAL REPORT [facility] Spine cervical wo contrast MRI Spine cervical [...] BRAIN WITHOUT CONTRAST EXAM: MRA OF THE [place] EXAM: MRA OF THE CERVICAL [...] angiography of the cervical vasculature and 3-D cwpu-oe-xaoewk MR angiography of the carotid bifurcations is performed. Maximum intensity projection reformatted images are presented in multiple three-dimensional rotational projections. [place] MRA: Three-dimensional time of flight [...] neck. The right vertebral artery is dominant. [place] MRA: Axial 3-D mpuc-mi-urkmlj MR angiography of the intracranial vasculature does [...] Taylor MD 11/12/14 14:43 FINAL REPORT [facility] Brain wo contrast MRI Brain wo contrast MRI EXAM: MRI OF THE BRAIN WITHOUT CONTRAST EXAM: MRA OF THE [place] EXAM: MRA OF THE CERVICAL [...] angiography of the cervical vasculature and 3-D hcae-xh-husyuz MR angiography of the carotid bifurcations is performed. Maximum intensity projection reformatted images are presented in multiple three-dimensional rotational projections. [place] MRA: Three-dimensional time of flight [...] neck. The right vertebral artery is dominant. [place] MRA: Axial 3-D iilq-bf-habdgu MR angiography of the intracranial vasculature does [...] BRAIN WITHOUT CONTRAST EXAM: MRA OF THE [place] EXAM: MRA OF THE CERVICAL [...] angiography of the cervical vasculature and 3-D kxvd-vy-epzuzw MR angiography of the carotid bifurcations is performed. Maximum intensity projection reformatted images are presented in multiple three-dimensional rotational projections. [place] MRA: Three-dimensional time of flight [...] neck. The right vertebral artery is dominant. [place] MRA: Axial 3-D qlon-qk-jzthfb MR angiography of the intracranial vasculature does [...] Reggie Jeffries MD 07/25/14 08:41 FINAL REPORT [facility] Ribs unilateral Ribs unilateral RIGHT RIB SERIES [...] Kam Toledo MD 03/27/13 19:00 FINAL REPORT [facility] Vital Signs Vital Sign Value Date Comments Source Encounters Location Location Details Encounter Type Encounter Number Reason For Visit Attending Provider ADM Date DC Date Status Source [facility] Outpatient [id number] CLARITZA TERRAZAS 08/02/2011 Active [facility] Outpatient [id number] 786.2 RICKIE BANDA 12/24/2011 Active [facility] [id number] Mariana Bui 07/24/2014 07/25/2014 CHANTEL Machadoa [facility] [id number] Michelle Donovan 11/12/2014 11/13/2014 [facility] Outpatient [id number] Merrick Vital 10/10/2015 10/11/2015 [facility] Outpatient [id number] Krystal Fozia 03/31/2017 04/01/2017 [facility] Outpatient [id number] Krystal Marcelo 11/30/2017 12/01/2017 [facility] Procedures Procedure Code Date Perfomer Comments Source Cholecystectomy<sup>1</sup> [id number] 2004 [facility] Surgical biopsy<sup>2</sup> [id number] squamous cell removed left side face 2009 [facility]
[2018-10-01] MEDS ORDERED: ONDANSETRON HCL INJ 2MG/ML 2ML 2 MG/ML VIAL IV STA ×2 (10:57→13:24)
[2018-10-01] MEDS ORDERED: SODIUM CHLORIDE 0.9% 1000ML 1,000 ML IV ONE (11:00)
--- NOTE | 2018-10-01 13:03 | Diagnostic Imaging Report ---
CT Abdomen And Pelvis with Intravenous Contrast INDICATION: History of Diverticulitis, abdominal pain TECHNIQUE: Thin collimation axial images obtained from the diaphragm to the level of the pubic symphysis following the uneventful administration of 100 cc of low osmolar, nonionic intravenous contrast. Delayed images through the kidneys, ureters, and bladder were obtained. Dose reduction techniques used: Automated exposure control, adjustment of the mAs and/or kVp according to patient size, standardized low-dose protocol, and/or iterative reconstruction technique. RADIATION DOSE: Total DLP: 1203.8 mGy*cm Estimated effective dose: (DLP x 0.015 x size factor) mSv CTDIvol has been reviewed. It is below the limits set by the Radiation Protocol Committee (RPC). COMPARISON: None. ABDOMEN FINDINGS: Lung Bases: Clear. The visualized portions of the mediastinum are normal.. Liver: Decreased attenuation. No evidence for mass. Gallbladder: Absent. No biliary ductal dilatation. Pancreas: Mild fatty atrophy without mass or ductal dilatation. Spleen: Normal in size. No evidence of mass.. Adrenal Glands: No evidence for mass. Kidneys: Right: Normal enhancement. No soft tissue mass. No hydronephrosis. Left: Normal enhancement. No soft tissue mass. No hydronephrosis. Lymph Nodes: No enlarged abdominal lymph nodes. Aortic lymph nodes are increased in number and measure up to 9 mm. Aorta: Normal in diameter PELVIS FINDINGS: Bowel: Stomach: Collapsed but otherwise normal in appearance. Small Bowel: Normal in caliber with normal wall thickness. Large Bowel: Diverticulosis coli, particularly in the descending colon and the sigmoid colon. There is mural thickening and pericolonic inflammation of the sigmoid colon as it turns midline with exuberant inflammation of the adjacent peritoneal fat. No loculated fluid collection or free air. Appendix: Normal appendix. Bladder: No evidence of intraluminal air. The late images demonstrate excretion of contrast into the bladder without intraluminal filling defect. Renal collecting systems/ureters: Renal collecting systems are normal in morphology. The ureters are normal in diameter throughout the course without intrinsic or extrinsic defects. The uterus is present and normal in morphology. No adnexal mass. Peritoneum/retroperitoneum: Small amount of diffuse pelvic ascites. No loculated fluid collection. Bones: Mild degenerative changes of the spine. No focal osseous lesions. Soft tissues: Unremarkable. IMPRESSION: 1. Acute diverticulitis of the sigmoid colon. No evidence of abscess or perforation. No involvement of the ureters or bladder. 2. Steatosis. 3. Status post cholecystectomy and hysterectomy. Signed by: Dr. Michelle Sosa MD on 10/01/2018 1:00 PM
[2018-10-01] MEDS ORDERED: METRONIDAZOLE 500MG/NS 100ML 100 ML IV ONE (13:30)
[2018-10-01] MEDS ORDERED: CIPROFLOXACIN 400 MG/D5W 200ML 200 ML IV ONE (13:30)
--- NOTE | 2018-10-01 14:00 | NUR ---
PT RESTING, VITAL SIGNS STABLE, PT VOICES NO COMPLAINTS AT THIS TIME.
[2018-10-01] MEDS ORDERED: CIPRO500 MG PO (14:39)
[2018-10-01] MEDS ORDERED: METRONIDAZOLE500 MG PO (14:40)
[2018-10-01] MEDS ORDERED: ULTRAM50 MG PO (14:43)
[2018-10-01 14:46] VITALS: BP 147/73
== END 2018-10-01 15:00 | disposition home or self-care (01) ==
LOC: FSED 10:02
DX: R10.31 Right lower quadrant pain (principal); R10.32 Left lower quadrant pain; R11.0 Nausea; I10 Essential (primary) hypertension; F32.9 Major depressive disorder, single episode, unspecified; M25.562 Pain in left knee; M25.561 Pain in right knee; G89.29 Other chronic pain; Z87.19 Personal history of other diseases of the digestive system
CPT/HCPCS: 74177; 80053; 85025; 99284; J0744; J2405; J7030

== ENCOUNTER 2018-10-05 22:17 | Emergency (ER) | payer MEDICARE ==
[~2018-10-05] VITALS: Ht 170.2 cm; Wt 92.1 kg
[~2018-10-05 22:17] MED LIST changes: +CIPRO500 MG PO; +METRONIDAZOLE500 MG PO; +ULTRAM50 MG PO
[2018-10-06 01:46] LABS: CLARITY,URINE CLEAR (CLEAR); COLOR,URINE YELLOW (YELLOW); LEUKOCYTE ESTERASE ,URINE NEGATIVE (NEGATIVE); NITRITE,URINE NEGATIVE (NEGATIVE); PROTEIN,URINE DIPSTICK NEGATIVE (NEGATIVE)
[2018-10-06 01:47] LABS: BILIRUBIN,URINE NEGATIVE (NEGATIVE); KETONES,URINE 1+ (NEGATIVE); URINE UROBILINOGEN 0.2 mg/dL (0.2 - 1)
[2018-10-06 02:10] LABS: BACTERIA,URINE FEW /HPF; EPITHELIAL CELLS,URINE FEW /LPF; TRANSITIONAL EPI CELLS,URINE FEW
[2018-10-06] MEDS ORDERED: CEFTRIAXONE SOD 1 GM/NS 50 ML 50 ML IV SCH (02:30)
[2018-10-06 03:32] LABS: BASOPHILS % 0.3 % (0.0-1.0); EOSINOPHILS # (AUTO) 0.1 (0.0-0.4); EOSINOPHILS % 1.2 % (0.0-6.0); HEMOGLOBIN 11.1 g/dL (12.0-16.0); LYMPHOCYTES # (AUTO) 1.6 (1.0-3.2); LYMPHOCYTES % 16.7 % (18.0-39.1); MEAN CORPUSCULAR HEMOGLOBIN 28.2 pg (28-32); MEAN CORPUSCULAR HGB CONC 32.6 g/dL (31-35); MEAN CORPUSCULAR VOLUME 86.3 fL (81-99); MONOCYTES # (AUTO) 0.7 (0.2-0.8); MONOCYTES % 7.1 % (4.4-11.3); NEUTROPHILS # (AUTO) 7.1 (2.1-6.9); NEUTROPHILS % 74.4 % (38.7-80.0); PLATELET COUNT 246 x10e3/uL (140-360); RED BLOOD COUNT 3.94 x10e6/uL (3.6-5.1); RED CELL DISTRIBUTION WIDTH 13.3 % (11.7-14.4)
[2018-10-06] MEDS ORDERED: KETOROLAC TROMETHAMINE 30 MG/ML VIAL IV STA (03:43)
[2018-10-06 03:48] LABS: ALANINE AMINOTRANSFERASE 14 IU/L (0-55); ALBUMIN 3.3 g/dL (3.5-5.0); ALKALINE PHOSPHATASE 61 IU/L (40-150); ANION GAP 13.1 mmol/L (8-16); BLOOD UREA NITROGEN 7 mg/dL (7-26); BUN/CREATININE RATIO 9 (6-25); CALCIUM 9.5 mg/dL (8.4-10.2); CARBON DIOXIDE 26 mmol/L (22-29); CHLORIDE 102 mmol/L (98-107); CREATININE, SERUM 0.81 mg/dL (0.57-1.11); EST GLOMERULAR FILTRATION RATE > 60 ML/MIN (60-); GLUCOSE 106 mg/dL (74-118); POTASSIUM 3.1 mmol/L (3.5-5.1); SODIUM 138 mmol/L (136-145)
[2018-10-06] MEDS ORDERED: CIPRO500 MG PO (04:15)
== END 2018-10-06 07:04 | disposition home or self-care (01) ==
LOC: ER 22:17
DX: R10.32 Left lower quadrant pain (principal); N30.91 Cystitis, unspecified with hematuria; I10 Essential (primary) hypertension; E78.5 Hyperlipidemia, unspecified; F32.9 Major depressive disorder, single episode, unspecified; Z87.19 Personal history of other diseases of the digestive system; Z85.828 Personal history of other malignant neoplasm of skin
CPT/HCPCS: 36415; 80053; 81001; 85025; 99283; J0696; J1885

== ENCOUNTER 2022-03-20 10:41 | Emergency (ER) | payer MEDICARE ==
[~2022-03-20] VITALS: Ht 170.2 cm; Wt 93.9 kg
[2022-03-20] MEDS ORDERED: IOPAMIDOL 370 MG/ML 100 ML INFUS..BTL INJ ONE (11:43)
[2022-03-20] MEDS ORDERED: CIPROFLOXACIN500 MG PO (12:51)
[2022-03-20] MEDS ORDERED: ONDANSETRON ODT4 MG PO (12:51)
[2022-03-20] MEDS ORDERED: METRONIDAZOLE500 MG PO (12:51)
== END 2022-03-20 13:19 | disposition home or self-care (01) ==
LOC: FSED 11:12
DX: R10.32 Left lower quadrant pain (principal); K57.32 Diverticulitis of large intestine without perforation or abscess without bleeding; I10 Essential (primary) hypertension; E78.5 Hyperlipidemia, unspecified; G47.30 Sleep apnea, unspecified; F32.A Depression, unspecified; Z85.89 Personal history of malignant neoplasm of other organs and systems
CPT/HCPCS: 74177; 80048; 80076; 81003; 85025; 87086; 99283; Q9967